=== PATIENT | female | born 1970 | race African-American/Black ===

== ENCOUNTER → 2016-12-25 | Outpatient (CLI) | payer BC ==
[~2016-12-25] MED LIST: LISINOPRIL PO; METFORMIN PO; [UNRECOGNIZED DRUG - REMARK]
--- NOTE | ~2016-12-25 | CR170 ---
[facility] A Service of [facility] & [facility] RADIOLOGY TEXT RESULTS PATIENT: KRISTINA SERRANO LOCATION: [facility] : 70 UNIT #: [id number] AGE: [address]: ISMA KULKARNI SEX: F ORDER DR: [id number] [facility] [address] [place], [place] [address] [id number] O MR#: [id number] Acc #: [id number] NAME: KRISTINA SERRANO : 1970 SEX: F STUDY DATE/TIME: 12/25/2016 9:56 UNIT: [facility] ROOM: STUDY DESCRIPTION: CR Knee 2 Views Rt Attending Physician: Levy Aquino Referring Physician: Levy Aquino Ordering Physician: Levy Aquino Primary Care Physician: Elly Frias M.D. MEDICAL IMAGING REPORT This report is preliminary unless electronic signature is present EXAM Right knee 2 views, 12/25/2016 HISTORY Right lateral posterior knee pain for 1 month. FINDINGS AP and lateral projection of the knee shows smooth articular anatomy without indication of fracture or dislocation at the major weight-bearing surface of the knee. There is no indication of radiopaque foreign body about the knee surface or joint effusion. IMPRESSION Normal knee. Dictated by... Juancarlos Antoine M.D. THIS IS AN ELECTRONICALLY VERIFIED REPORT Juancarlos Antoine M.D. at 12/25/2016 4:53 PM BELEM/mica TD: 12/25/2016 15:23 JOB #: [id number] MEDICAL IMAGING REPORT Page 1 of 1 COPY
--- NOTE | ~2016-12-25 | CR151 ---
[facility] A Service of [facility] & [facility] RADIOLOGY TEXT RESULTS PATIENT: KRISTINA SERRANO LOCATION: [facility] : 70 UNIT #: [id number] AGE: [address]: ISMA KULKARNI SEX: F ORDER DR: [id number] [facility] [address] [place], [place] [address] [id number] O MR#: [id number] Acc #: [id number] NAME: KRISTINA SERRANO : 1970 SEX: F STUDY DATE/TIME: 12/25/2016 9:55 UNIT: [facility] ROOM: STUDY DESCRIPTION: CR Hip Min 2 Views Rt Attending Physician: Levy Aquino Referring Physician: Levy Aquino Ordering Physician: Levy Aquino Primary Care Physician: Elly Frias M.D. MEDICAL IMAGING REPORT This report is preliminary unless electronic signature is present EXAM AP pelvis and frog view right hip, 12/25/2016. CLINICAL HISTORY Right hip pain for one month. FINDINGS Normal. Dictated by... Juancarlos Antoine M.D. THIS IS AN ELECTRONICALLY VERIFIED REPORT Juancarlos Antoine M.D. at 12/25/2016 4:51 PM BELEM/ryan TD: 12/25/2016 14:48 JOB #: [id number] MEDICAL IMAGING REPORT Page 1 of 1 COPY
== END | disposition home or self-care (01) ==
LOC: CRAD 09:37
DX: M25.551 Pain in right hip (principal); M25.561 Pain in right knee
CPT/HCPCS: 73502; 73560